=== PATIENT | female | born 1980 | race Caucasian/White ===

== ENCOUNTER 2017-08-09 09:21 | Emergency (ER) | payer MEDICAID ==
[~2017-08-09] VITALS: Ht 162.6 cm; Wt 85.3 kg
[2017-08-09 09:32] VITALS: BP 155/85
--- NOTE | 2017-08-09 09:39 | NUR ---
Patient ambulated to OF2. RN evaluating patient.
--- NOTE | 2017-08-09 09:45 | NUR ---
PT REPORTS GENERALIZED ABDOMINAL PAIN X3 DAYS WORSENING THIS AM. ALSO STATES NAUSEA/VOMITTING. WHEN QUESTIONED REPORTS LAST BM 4 DAYS AGO, NOT NORMAL FOR PT. ABD SOFT,LARGE, MILDLY TENDER TO PALPATION. NO MED HX
[2017-08-09] MEDS ORDERED: NACL 0.9% 1,000 ML IV ONE (09:51)
[2017-08-09] MEDS ORDERED: ONDANSETRON 4 MG/2 ML VIAL IVP ONE (09:55)
[2017-08-09] MEDS ORDERED: MORPHINE SULFATE 4 MG/ML SYR IVP ONE (09:55)
--- NOTE | 2017-08-09 10:15 | NUR ---
ASSUMED PATIENT CARE, CONCUR WITH TRIAGE ASSESSMENT. SEEN AND EVALUATED BY PROVIDER, MSE COMPLETED. CT ABD COMPLETED.
[2017-08-09 10:18] LABS: HEMOGLOBIN 13.9 g/dL (12.0-16.0); MEAN CORPUSCULAR HEMOGLOBIN 29 pg (27-31); MEAN CORPUSCULAR HGB CONC 33 g/dL (33-37); MEAN CORPUSCULAR VOLUME 87 fL (80-94); PLATELET COUNT (AUTO) 359 K/uL (140-450); RED BLOOD CELL COUNT(AUTO) 4.83 MIL/uL (4.20-5.40); WHITE BLOOD COUNT (AUTO) 11.2 K/uL (4.8-10.8)
[2017-08-09 10:34] LABS: EOSINOPHILS % (MANUAL) 1 % (0-4); LYMPHOCYTES % (MANUAL) 8 % (20-46); MONOCYTES % (MANUAL) 5 % (5-12)
[2017-08-09 10:49] LABS: ANION GAP 10.1 (8-16); CARBON DIOXIDE 27.1 mmol/L (21-32); CREATININE 0.8 mg/dL (0.6-1.3); POTASSIUM 3.2 mmol/L (3.5-5.1)
[2017-08-09 10:55] LABS: ALBUMIN 3.4 g/dL (3.4-5.0); TOTAL BILIRUBIN 0.2 mg/dL (0.0-1.0)
[2017-08-09] MEDS ORDERED: POTASSIUM CHLORIDE 10 MEQ TABER PO ONE (11:05)
[2017-08-09 11:32] VITALS: BP 128/60
--- NOTE | 2017-08-09 11:33 | NUR ---
DISPO AND MEDICAL DECISION MAKING, DC HOME WITH INSTRUCTIONS AND PRESCRIPTIONS, UNDERSTOOD BY PATIENT WELL, VSWNL, SYMPTOMS IMPROVED, DC HOME AMBULATORY, IV DC'D.
== END 2017-08-09 11:33 | disposition home or self-care (01) ==
LOC: MED 09:21
DX: R10.84 Generalized abdominal pain (principal); R11.10 Vomiting, unspecified; R19.7 Diarrhea, unspecified
CPT/HCPCS: 36415; 74176; 80053; 81002; 81025; 83690; 85025; 96361; 96374; 96375; 99285; J2270; J2405; J7030

== ENCOUNTER 2017-09-19 12:30 | Emergency (ER) | payer MEDICAID ==
[~2017-09-19] VITALS: Ht 162.6 cm; Wt 87.3 kg
[2017-09-19 12:57] VITALS: BP 120/77
--- NOTE | 2017-09-19 13:00 | NUR ---
PATIENT PRESENTS TO ED WITH C/O EPIGASTRIC PAIN . PT STATES THE PAIN STARTED YESTERDAY . DENIES ANY MEDICAL HX. DENIES N/V/D; SKIN IS PINK/WARM/DRY; AAOX4 WITH EVEN AND STEADY GAIT; LUNGS CLEAR BL; HR EVEN AND REGULAR; PT DENIES ANY FEVER, CP, SOB, OR COUGH AT THIS TIME; PATIENT STATES PAIN OF 8/10 AT THIS TIME; VSS; PATIENT POSITIONED FOR COMFORT; HOB ELEVATED; BEDRAILS UP X2; BED DOWN. ER MD MADE AWARE OF PT STATUS.
--- NOTE | 2017-09-19 13:01 | NUR ---
URINE CUP PROVIDED TO PT FOR SAMPLE; PT AA&OX4 WITH EVEN AND STEADY GAIT; PT TO LOBBY AWAITING OPEN BED.
--- NOTE | 2017-09-19 14:10 | NUR ---
PT TAKEN TO US.
[2017-09-19 14:36] LABS: APPEARANCE,URINE CLEAR (CLEAR); BILIRUBIN,URINE NEGATIVE (NEGATIVE); BLOOD, URINE NEGATIVE (NEGATIVE); COLOR,URINE YELLOW (YELLOW); LEUKOCYTE ESTERASE ,URINE NEGATIVE (NEGATIVE); NITRITE, URINE NEGATIVE (NEGATIVE); UGLUCOSE NEGATIVE (NEGATIVE)
[2017-09-19 14:51] LABS: BASOPHILS # (AUTO) 0.1 K/uL (0.00-0.22); BASOPHILS % (AUTO) 1.7 % (0.0-2.0); EOSINOPHILS # (AUTO) 0.1 K/uL (0-0.4); EOSINOPHILS % (AUTO) 1.9 % (0.0-4.0); HEMATOCRIT 37.4 % (36-48); HEMOGLOBIN 12.6 g/dL (12.0-16.0); LYMPHOCYTES # (AUTO) 2.5 K/uL (2.5-16.5); LYMPHOCYTES % (AUTO) 32.5 % (20.5-51.1); MEAN CORPUSCULAR HEMOGLOBIN 29 pg (27-31); MEAN CORPUSCULAR HGB CONC 34 g/dL (33-37); MEAN CORPUSCULAR VOLUME 87 fL (80-94); MONOCYTES # (AUTO) 0.5 K/uL (0.8-1.0); MONOCYTES % (AUTO) 6.5 % (1.7-9.3); NEUTROPHILS # (AUTO) 4.6 K/uL (1.8-7.7); NEUTROPHILS % (AUTO) 57.4 % (42.2-75.2); PLATELET COUNT (AUTO) 382 K/uL (140-450); RED BLOOD CELL COUNT(AUTO) 4.31 MIL/uL (4.20-5.40); RED CELL DISTRIBUTION WIDTH 13.5 % (11.6-13.7); WHITE BLOOD COUNT (AUTO) 7.8 K/uL (4.8-10.8)
[2017-09-19 14:53] LABS: ANION GAP 10.9 (8-16); CARBON DIOXIDE 29.2 mmol/L (21-32); CREATININE 0.7 mg/dL (0.6-1.3); POTASSIUM 4.1 mmol/L (3.5-5.1)
[2017-09-19 14:59] LABS: ALBUMIN 3.3 g/dL (3.4-5.0); TOTAL BILIRUBIN 0.1 mg/dL (0.0-1.0)
--- NOTE | 2017-09-19 15:48 | NUR ---
Patient discharged with v/s stable BY DR REDDING. Written and verbal after care instructions given and explained. Patient alert, oriented and verbalized understanding of instructions. Ambulatory with steady gait. All questions addressed prior to discharge. ID band removed. Patient advised to follow up with PMD. Rx MILK OF MAGNESIA of given. Patient educated on indication of medication including possible reaction and side effects. Opportunity to ask questions provided and answered.
[2017-09-19 16:11] VITALS: BP 120/77
== END 2017-09-19 16:13 | disposition home or self-care (01) ==
LOC: MED 12:30
DX: K59.00 Constipation, unspecified (principal)
CPT/HCPCS: 36415; 74018; 76705; 80053; 81003; 82150; 83690; 85025; 99285; Q0092

== ENCOUNTER 2017-10-31 19:58 | Emergency (ER) | payer MEDICAID ==
[~2017-10-31] VITALS: Ht 162.6 cm; Wt 81.6 kg
[2017-10-31 20:00] VITALS: BP 145/90
--- NOTE | 2017-10-31 20:06 | NUR ---
TO LOBBY. A/W BED, AMB, STABLE, ERMD NOTED
--- NOTE | 2017-10-31 20:28 | NUR ---
PT.AMBULATED TO ER [facility]
--- NOTE | 2017-10-31 20:30 | NUR ---
37Y/F PT. PRESENST TO ED WITH C/O ABDOMINAL PA9N X 2 DAYS. PT. ALSO STATES N/V DIARRHEA, NO FEVER. NO MED HX. AAO X4, AMBULATORY WITH STEDAY GAIT. RESPIRATIONS EVEN AND UNLABORED. ABDOMEN SOFT, NON-TENDER, ACTIVE BS X4, C/O PAIN 10. VSS, ER MADE AWARE OF PT. STATYUS.
--- NOTE | 2017-10-31 20:40 | NUR ---
Patient being evaluated by at bedside.
[2017-10-31] MEDS ORDERED: NACL 0.9% 1,000 ML IV SCH (20:44)
[2017-10-31] MEDS ORDERED: KETOROLAC 30 MG/ML VIAL IVP ONE (20:45)
[2017-10-31 21:00] LABS: BASOPHILS # (AUTO) 0.3 K/uL (0.00-0.22); EOSINOPHILS # (AUTO) 0.2 K/uL (0-0.4); HEMATOCRIT 35.9 % (36-48); LYMPHOCYTES # (AUTO) 2.7 K/uL (2.5-16.5); MEAN CORPUSCULAR HEMOGLOBIN 29 pg (27-31); MEAN CORPUSCULAR HGB CONC 33 g/dL (33-37); MEAN CORPUSCULAR VOLUME 88.1 fL (80-94); MONOCYTES # (AUTO) 0.8 K/uL (0.8-1.0); NEUTROPHILS # (AUTO) 5.2 K/uL (1.8-7.7); PLATELET COUNT (AUTO) 365 K/uL (140-450); RED BLOOD CELL COUNT(AUTO) 4.08 MIL/uL (4.20-5.40); RED CELL DISTRIBUTION WIDTH 13.3 % (11.6-13.7); WHITE BLOOD COUNT (AUTO) 9.3 K/uL (4.8-10.8)
[2017-10-31 21:11] LABS: APPEARANCE,URINE CLEAR (CLEAR); BILIRUBIN,URINE NEGATIVE (NEGATIVE); BLOOD, URINE NEGATIVE (NEGATIVE); COLOR,URINE YELLOW (YELLOW); LEUKOCYTE ESTERASE ,URINE NEGATIVE (NEGATIVE); NITRITE, URINE NEGATIVE (NEGATIVE); UGLUCOSE NEGATIVE (NEGATIVE)
[2017-10-31 21:13] LABS: ANION GAP 14.3 (8-16); CARBON DIOXIDE 23.6 mmol/L (21-32); CREATININE 0.6 mg/dL (0.6-1.3); POTASSIUM 3.9 mmol/L (3.5-5.1)
[2017-10-31 21:18] LABS: ALBUMIN 3.1 g/dL (3.4-5.0); TOTAL BILIRUBIN 0.1 mg/dL (0.0-1.0)
--- NOTE | 2017-10-31 21:25 | NUR ---
PT.AMBULATED TO ER BED 12
--- NOTE | 2017-10-31 21:33 | NUR ---
PATIENT AMBULATED TO ER BED 12
--- NOTE | 2017-10-31 21:50 | NUR ---
REPORT GIVEN TO HAILY JONAS
[2017-10-31] MEDS ORDERED: MORPHINE SULFATE 4 MG/ML SYR IVP ONE (22:45)
[2017-11-01 00:54] VITALS: BP 138/88
--- NOTE | 2017-11-01 00:54 | NUR ---
Patient discharged with v/s stable. Written and verbal after care instructions given and explained. Patient alert, oriented and verbalized understanding of instructions. Ambulatory with steady gait. All questions addressed prior to discharge. ID band removed. Patient advised to follow up with PMD. Rx of BENTYL AND DIPHENHYDRAMINE HYDROCHLORIDE given. Patient educated on indication of medication including possible reaction and side effects. Opportunity to ask questions provided and answered.
== END 2017-11-01 00:54 | disposition home or self-care (01) ==
LOC: MED 19:58
DX: R10.9 Unspecified abdominal pain (principal); R11.2 Nausea with vomiting, unspecified; R19.7 Diarrhea, unspecified
CPT/HCPCS: 36415; 74176; 80053; 81003; 85025; 99285; J1885; J2270; J7030

== ENCOUNTER 2017-12-13 13:49 | Emergency (ER) | payer MEDICAID ==
[~2017-12-13] VITALS: Ht 170.2 cm; Wt 81.6 kg
[2017-12-13 14:05] VITALS: BP 113/71
--- NOTE | 2017-12-13 14:10 | NUR ---
PT. CAME INTO ED DUE TO C/O OF NAUSEA AND VOMITING X 1 DAY AND STOMACH PAIN. PT STATES " I STARTED VOMITING TODAY IN THE MORNING AND MY STOMACH HURTS ESPECIALLY WHEN I EAT." ABD IS ROUND AND SOFT. 6/10 PAIN THAT IS EPIGASTRIC AND DESCRIBED BURNING PAIN. RR EVEN AND UNLABORED. DENIES SOB , NO COUGH AT THIS TIME. PT. CAME WITH SON, SON WITH PT IN ROOM. M.D AWARE. WILL CONTINUE TO MONITOR.
--- NOTE | 2017-12-13 14:12 | NUR ---
PT AMBULATED TO ER BED 02
--- NOTE | 2017-12-13 15:28 | NUR ---
DOCTOR IN ROOM .
[2017-12-13] MEDS ORDERED: ONDANSETRON 4 MG TAB PO ONE (15:50)
--- NOTE | 2017-12-13 16:44 | NUR ---
PT. RESTING IN BED COMFORTABLY, RR EVEN AND UNLABORED. BED IN LOWEST POSTION. WILL CONTINUE TO MONITOR.
[2017-12-13 16:47] VITALS: BP 115/63
--- NOTE | 2017-12-13 16:47 | NUR ---
Patient discharged with v/s stable. Written and verbal after care instructions given and explained. Patient alert, oriented and verbalized understanding of instructions. Ambulatory with steady gait. All questions addressed prior to discharge. ID band removed. Patient advised to follow up with PMD. Rx of MILK OF MAGNESIA given. Patient educated on indication of medication including possible reaction and side effects. Opportunity to ask questions provided and answered.
== END 2017-12-13 16:47 | disposition home or self-care (01) ==
LOC: MED 13:49
DX: K59.00 Constipation, unspecified (principal)
CPT/HCPCS: 74018; 81002; 81025; 99283; Q0092; Q0162

== ENCOUNTER 2018-08-18 16:51 | Emergency (ER) | payer MEDICAID, OTHER ==
[~2018-08-18] VITALS: Ht 167.6 cm; Wt 93.6 kg
[2018-08-18 17:06] VITALS: BP 125/93
[2018-08-18] MEDS: KETOROLAC 30 MG/ML VIAL IM ONE (18:43)
[2018-08-18 18:51] VITALS: BP 120/90
== END 2018-08-18 18:51 | disposition home or self-care (01) ==
LOC: MED 16:51
DX: M54.9 Dorsalgia, unspecified (principal); X50.0XXA Overexertion from strenuous movement or load, initial encounter; Y93.89 Activity, other specified; Y92.89 Other specified places as the place of occurrence of the external cause; Y99.8 Other external cause status
CPT/HCPCS: 96372; 99283; J1885

== ENCOUNTER 2018-09-02 19:45 | Emergency (ER) | payer MEDICAID ==
[~2018-09-02] VITALS: Ht 165.1 cm; Wt 90.7 kg
[2018-09-02 19:52] VITALS: BP 146/79
--- NOTE | 2018-09-02 19:55 | NUR ---
PT TRIAGED AND SENT TO ER LOBBY
--- NOTE | 2018-09-02 20:53 | NUR ---
PT TAKEN TO BED 11
--- NOTE | 2018-09-02 21:00 | NUR ---
38/F PRESENTS TO ED WITH SON, C/O 7/10 THROAT PAIN, BL EAR PAIN, AND LOWER BACK PAIN, X3 DAYS. DENIES TAKING ANY ANALGESIC. PT DENIES FEVER, CP, SOB, N/V/D. PT AOX4, GCS 15, RR EVEN AND UNLABORED. LUNG SOUNDS CLEAR BL. DENIES MED HX.
--- NOTE | 2018-09-02 21:36 | NUR ---
PT RETURN FROM XRAY
--- NOTE | 2018-09-02 22:00 | NUR ---
Dr. Powers evaluating patient at bedside.
[2018-09-02] MEDS ORDERED: KETOROLAC 60 MG/2 ML VIAL IM ONE (22:25)
[2018-09-02 23:01] VITALS: BP 146/79
--- NOTE | 2018-09-02 23:01 | NUR ---
Patient discharged with v/s stable. Written and verbal after care instructions given and explained. Patient alert, oriented and verbalized understanding of instructions. Ambulatory with steady gait. All questions addressed prior to discharge. ID band removed. Patient advised to follow up with PMD. Rx of MOTRIN, TRAMADOL given. Patient educated on indication of medication including possible reaction and side effects. Opportunity to ask questions provided and answered.
== END 2018-09-02 23:01 | disposition home or self-care (01) ==
LOC: MED 19:45
DX: M54.32 Sciatica, left side (principal); H92.03 Otalgia, bilateral
CPT/HCPCS: 70110; 96372; 99283; J1885